=== PATIENT | female | born 1970 | race Asian ===

== ENCOUNTER 2021-01-19 06:19 | Day surgery (SDC) | payer OTHER, SELFPAY ==
[2021-01-17 12:12] LABS: BILIRUBIN,URINE NEGATIVE (NEGATIVE); CLARITY/URINE CLEAR (CLEAR); COLOR,URINE YELLOW (YELLOW); GLUCOSE,URINE NEGATIVE (NEGATIVE); KETONES,URINE NEGATIVE (NEGATIVE); LEUKOCYTE ESTERASE ,URINE NEGATIVE (NEGATIVE); NITRITE, URINE NEGATIVE (NEGATIVE); PROTEIN URINE NEGATIVE (NEGATIVE); UROBILINOGEN,URINE 0.2 (0.2-1.0)
[2021-01-17 12:15] LABS: BASOPHILS # (AUTO) 0.1 K/uL (0.0-0.2); BASOPHILS % (AUTO) 2.2 % (0.0-2.0); EOSINOPHILS # (AUTO) 0.1 K/uL (0.0-0.4); EOSINOPHILS % (AUTO) 1.6 % (0.0-4.0); HEMATOCRIT 41.1 % (36-48); HEMOGLOBIN 13.8 g/dL (12.0-16.0); LYMPHOCYTES # (AUTO) 1.1 K/uL (1.0-5.5); LYMPHOCYTES % (AUTO) 31.3 % (20.5-51.5); MEAN CORPUSCULAR HEMOGLOBIN 33 pg (27-31); MEAN CORPUSCULAR HGB CONC 34 % (32-36); MEAN CORPUSCULAR VOLUME 97 fL (79.0-98.0); MONOCYTES # (AUTO) 0.1 K/uL (0.0-1.0); MONOCYTES % (AUTO) 4.2 % (1.7-9.3); NEUTROPHILS # (AUTO) 2.1 K/uL (1.8-7.7); NEUTROPHILS % (AUTO) 60.7 % (40.0-70.0); PLATELET COUNT (AUTO) 244 K/uL (130-430); RED BLOOD CELL COUNT(AUTO) 4.22 MIL/uL (4.2-6.2); RED CELL DISTRIBUTION WIDTH 13.9 % (9.0-15.0); WHITE BLOOD COUNT (AUTO) 3.4 K/uL (4.8-10.8)
[2021-01-17 12:30] LABS: BLOOD, URINE NEGATIVE (NEGATIVE)
[~2021-01-19] VITALS: Ht 157.5 cm; Wt 45.4 kg
[2021-01-19] MEDS ORDERED: CEFAZOLIN SOD 2 GM in D5W 50 ML IV ONE (08:00)
[2021-01-19] MEDS ORDERED: CEFAZOLIN 2 GM IVPB PREMIX 50 ML IV ONE (08:07)
[2021-01-19] MEDS ORDERED: fentaNYL CITRATE/PF 100 MCG/2 ML AMP IVP ONE (08:10)
[2021-01-19] MEDS ORDERED: KETOROLAC TROMETHAMINE 30 MG VIAL IVP ONE (08:10)
[2021-01-19] MEDS ORDERED: BUPIVACAINE /EPINEPHRINE/PF 0.25% 30 ML VIAL INJ ONE (08:10)
[2021-01-19] MEDS ORDERED: NS 1000 ML IV.SOLN IV ONE (08:10)
[2021-01-19] MEDS ORDERED: NS IRRIG SOLN 1000 ML IR ONE (08:10)
[2021-01-19] MEDS ORDERED: ROCURONIUM BROMIDE 10 MG/ML (ZEMURON) IV ONE (08:10)
[2021-01-19] MEDS ORDERED: SUCCINYLCHOLINE CHLORIDE 20 MG/ML(QUELICIN) IVP ONE (08:10)
[2021-01-19] MEDS ORDERED: PROPOFOL 200MG/ 20ML VIAL (DIPRIVAN) IV ONE (08:10)
[2021-01-19] MEDS ORDERED: SEVOFLURANE 15 MIN GAS INH ONE (08:10)
[2021-01-19] MEDS ORDERED: MIDAZOLAM HCL 5 MG/5 ML VIAL IVP ONE (08:10)
[2021-01-19] MEDS ORDERED: ONDANSETRON HCL 4 MG/2 ML VIAL IVP ONE (08:10)
[2021-01-19] MEDS ORDERED: KETOROLAC TROMETHAMINE 30 MG VIAL IVP PRN (09:00)
[2021-01-19] MEDS ORDERED: ACETAMINOPHEN 325 MG TABLET PO ONE (09:00)
[2021-01-19] MEDS ORDERED: ONDANSETRON HCL 4 MG/2 ML VIAL IVP PRN ×2 (09:00→09:30)
[2021-01-19] MEDS ORDERED: HYDROmorphone 1 INJ. 1 MG/ML CARTRIDGE IVP PRN (09:00)
[2021-01-19] MEDS ORDERED: HYDROcodone/ACETAMIN 5-325 MG TAB (NORCO/ VICODIN) PO PRN (09:30)
[2021-01-19] MEDS ORDERED: OXYCODONE/ACETAMINOPHEN 5-325 TABLET PO PRN ×2 (09:30)
[2021-01-19 13:13] VITALS: BP_SYST 138
== END 2021-01-19 12:50 | disposition home or self-care (01) ==
LOC: SDS 06:19 → SMU 06:19 → SDS 12:50
PROVIDERS: ATTEND Specialist
DX: N70.11 Chronic salpingitis (principal); E03.9 Hypothyroidism, unspecified; F41.9 Anxiety disorder, unspecified; N94.10 Unspecified dyspareunia; D25.1 Intramural leiomyoma of uterus; N94.89 Other specified conditions associated with female genital organs and menstrual cycle; Z79.899 Other long term (current) drug therapy
CPT/HCPCS: 36415; 58661; 81003; 84703; 85025; 87426; 88305; C1727; C1782; J0330; J0690; J1885; J2250; J2405; J2704; J3010; J3490; J7030; J7120

== ENCOUNTER 2021-06-14 07:46 | Day surgery (SDC) | payer OTHER, SELFPAY ==
[~2021-06-14] VITALS: Ht 157.5 cm; Wt 45.4 kg
[2021-06-14 08:27] LABS: HCG,QUAL RESULT NEGATIVE (NEGATIVE)
[2021-06-14] MEDS ORDERED: SIMETHICONE 40 MG/0.6 ML ML ONE (09:22)
[2021-06-14] MEDS: MIDAZOLAM HCL 5 MG/5 ML VIAL ONE ×4 (09:33→09:41)
[2021-06-14] MEDS: MEPERIDINE 100 MG INJ. 100 MG/ML VIAL ONE ×2 (09:33→09:51)
[2021-06-14] MEDS ORDERED: MIDAZOLAM HCL 5 MG/5 ML VIAL ONE (09:49)
[2021-06-14 14:35] VITALS: BP_SYST 113
== END 2021-06-14 14:35 | disposition home or self-care (01) ==
LOC: SDS 07:46
PROVIDERS: ATTEND Internal Medicine Gastroenterology
DX: R19.4 Change in bowel habit (principal); K29.50 Unspecified chronic gastritis without bleeding; K21.9 Gastro-esophageal reflux disease without esophagitis; K64.4 Residual hemorrhoidal skin tags; B18.1 Chronic viral hepatitis B without delta-agent; Z79.899 Other long term (current) drug therapy
CPT/HCPCS: 36415; 43239; 45378; 84703; 87081; 87426; 88305; 88312; 88313; 96365; 99152; 99153; G0378; J2175; J2250